=== PATIENT | male | born 1965 | race Caucasian/White ===

== ENCOUNTER 2022-01-20 06:42 | Day surgery (SDC) | payer BC, OTHER ==
--- NOTE | 2022-01-17 12:57 | RAD REPORT ---
EXAM DESCRIPTION: RAD - Chest Pa And Lat (2 Views) - 01/17/2022 12:48 pm CLINICAL HISTORY: Pre op pending carpal tunnel Chest pain. COMPARISON: Chest Pa And Lat (2 Views) dated 04/22/2018; ABDOMEN 1 VIEW KUB dated 01/06/2015; CHEST PA AND LAT 2 VIEW dated 03/10/2013 TECHNIQUE: PA and lateral views of the chest were obtained. FINDINGS: The lungs are hyperexpanded compatible with COPD. The heart is upper limit of normal in si ze. No fracture or aggressive bony process. IMPRESSION: COPD without acute process identified.
[2022-01-17 14:00] LABS: Absolute Lymphocytes (CBC) 2.1 K/uL (0.7-4.9); Hematocrit 49.7 % (39.6-49.0); Lymphocytes % 25.6 % (15.3-44.8); MCV 87.9 fL (80-100); MPV 8.7 fL (7.6-11.3); RBC Red Blood Cell Count 5.66 M/uL (4.33-5.43)
[2022-01-17 14:28] LABS: SARS-CoV-2 Antigen Rapid Res Negative (Negative)
--- NOTE | 2022-01-18 07:22 | EKG ---
Test Date: 2022-01-17 Test Time: 12:31:08 Data Coordinator: CHRIS MEASUREMENT RESULTS: Intervals: Rate: 71 RI: 174 QRSD: 108 QT: 384 QTc: 417 [place]: P: 50 RI: 174 QRS: 44 T: 68 INTERPRETIVE STATEMENTS: Normal sinus rhythm Normal ECG No previous ECG available for comparison Electronically Signed On 01-18-22 07:19:26 CDT by Terence Vance
[2022-01-20] MEDS ORDERED: CEFAZOLIN SODIUM 1 GM/VIAL ONE ×2 (07:08→08:33)
[2022-01-20] MEDS ORDERED: Ringers Lactate 1,000 ML IV ONE (07:08)
[2022-01-20] MEDS ORDERED: propofoL 200 MG/20 ML VIAL IV ONE (07:37)
[2022-01-20] MEDS ORDERED: FENTANYL CITR 100 MCG/2 ML ONE (07:40)
[2022-01-20] MEDS ORDERED: LIDOCAINE 2% MPF 5 ML VIAL ONE (07:41)
[2022-01-20] MEDS ORDERED: MIDAZOLAM HCL 2 MG/2 ML INJ ONE (07:41)
[2022-01-20] MEDS ORDERED: ONDANSETRON 4 MG/2 ML VIAL ONE (07:41)
[2022-01-20] MEDS ORDERED: dexAMETHasone 10 MG/ML VIAL ONE (08:44)
[2022-01-20] MEDS: BUPIVACAINE 0.25% PF 10 ML VIAL ONE ×2 (08:50→09:06)
--- NOTE | 2022-01-20 09:20 | P.BOP ---
Preoperative diagnosis: right carpal tunnel syndrome Postoperative diagnosis: same Primary procedure: right open carpal tunnel release Porcelain Finisher: NONE,NONE Estimated blood loss: 3 cc Specimen: none Findings: see dictation Anesthesia: General Complications: None Implants: none Fluids & blood products: per anesthesia record; TT: 21 mins @ 250 mmHg Transferred to: Recovery Room Condition: Good
[2022-01-20 11:01] VITALS: BP 117/60; TEMP 97.2; O2SAT 100
--- NOTE | 2022-01-20 21:18 | OP ---
Date of Procedure: 01/20/2022 Surgeon: Medardo Perez MD Preoperative Diagnosis: Right carpal tunnel syndrome. Postoperative Diagnosis: Right carpal tunnel syndrome. Procedure Performed: Right open carpal tunnel release. Anesthesia: General LMA. Fluids: Per Anesthesia record. Estimated Blood Loss: 3 cc. Complications: None. Implants: None. Tourniquet Time: 21 minutes at 250 mmHg. Indication For Procedure: Jh is a 56-year-old male who presented to my clinic with signs, sympt oms, and EMG findings consistent with a right carpal tunnel syndrome. The patient failed conservativ e treatment measures and had significant symptoms that interfered with his activities of daily living . I discussed with the patient at length risks and benefits associated with operative and nonoperati ve treatment. He expressed understanding and elected to proceed with operative treatment. Description Of Procedure: After informed consent was obtained, the patient was identified in the pre operative holding area. The right upper extremity was marked. The patient was then brought back to the operating room, transferred to the operative table in supine fashion, placed under general LMA an esthesia. The right upper extremity was then prepped and draped in usual sterile fashion. A time-ou t was initiated. Correct patient and procedure were confirmed and identified. The patient did recei ve his preoperative prophylactic antibiotics. The right upper extremity was then exsanguinated using Esmarch and tourniquet was inflated at 250 mmHg. An approximately 3 cm longitudinal incision was ma de just ulnar to the thenar crease as well as distal to the wrist crease. Dissection was taken down to the allen fascia, which was identified. A Montgomery elevator was then placed deep to the palmar fasc ia and transverse carpal ligament to protect the median nerve at all times. Under direct visualizati on a 15-blade was then used to release the palmar fascia and transverse carpal ligament with the medi an nerve protected at all times using a Montgomery elevator. After this was completed, any remaining fasc ial bands were then released using the blunt tip Metzenbaum tips pointed superficially to protect the median nerve at all times. The wound was then irrigated thoroughly with normal saline. Skin was ap proximated using a 5-0 Prolene. Sterile dressings were applied. Tourniquet was let down. The patie nt was awakened and transferred to PACU in stable condition. Postoperative Plan: The patient may begin work on range of motion exercises. He will follow up in 1 week for suture removal. AUNG/MODL Voice ID: [id number] Report ID: [id number]
== END 2022-01-20 10:27 | disposition home or self-care (01) ==
LOC: OR 06:42
PROVIDERS: ATTEND Orthopaedic Surgery Sports Medicine
PROC: 01N50ZZ Release Median Nerve, Open Approach (ICD-10-PCS; principal; 2022-01-20 08:00)
DX: G56.01 Carpal tunnel syndrome, right upper limb (principal); Z20.822 Contact with and (suspected) exposure to COVID-19
CPT/HCPCS: 93005; 85025; 80048; 36415; 85610; 85730; 71046; 87811; 64721; J2704; J2250; J3010; J1100; J7120; J2405; J0690 ×2